=== PATIENT | male | born 1970 | race African-American/Black ===

== ENCOUNTER 2022-02-19 20:23 | Emergency (ER) | payer SELFPAY ==
[2022-02-19] MEDS ORDERED: Ondansetron PF 4 MG/2 ML Vial ONE (20:37)
[2022-02-19] MEDS ORDERED: hydrALAZINE 20 MG/ML VIAL ONE (20:38)
[2022-02-19 20:55] LABS: #Basophils 0.1 thou/uL (0.0-0.2); #Monocytes 0.4 thou/uL (0.11-0.59); #Neutrophils 6.9 thou/uL (1.40-6.50); %Basophils 1.1 % (0.0-1.0); %Eosinophils 0.4 % (0.0-10.0); %Lymphocytes 21.2 % (21.0-51.0); %Monocytes 4.6 % (0.0-10.0); %Neutrophils 72.7 % (42.0-75.0); Hemoglobin 16.6 g/dL (12.0-16.0); Mean Corpuscular HGB CONC 31.7 g/dL (32.0-36.0); Mean Corpuscular Hemoglobin 26.3 pg (27.0-31.0); Mean Corpuscular Volume 82.9 fl (78.0-98.0); Mean Platelet Volume 9.1 fL (7.4-10.4); Platelet Count 236 10x3/uL (130-400); RBC Distribution Width 13.5 % (11.5-14.5); Red Blood Cell (RBC) Count 6.31 mill/uL (4.20-5.40); White Blood Cell (WBC) Count 9.5 10x3/uL (4.8-10.8)
[2022-02-19] MEDS ORDERED: Meclizine HCl 25 MG TAB ONE (21:07)
[2022-02-19] MEDS ORDERED: Sodium Chloride 0.9% 1,000 ML ONE (21:19)
[2022-02-19] MEDS ORDERED: Labetalol HCl 100 MG/20 ML VIAL ONE (21:42)
[2022-02-19 22:37] LABS: ALT (SGPT) 21 U/L (8-55); AST (SGOT) 20 U/L (5-34); Albumin 4.4 g/dL (3.5-5.0); Alkaline Phosphatase 87 U/L (40-110); Anion Gap 20 mmol/L (10-20); BUN (Urea Nitrogen) 11 mg/dL (8.4-25.7); Bilirubin, Total 0.5 mg/dL (0.2-1.2); Calc. Creatinine Clearance 0 mL/min (70-130); Calcium 9.7 mg/dL (7.8-10.44); Carbon Dioxide 23 mmol/L (22-29); Chloride 105 mmol/L (98-107); Estimated GFR 70; Globulin 3.3 g/dL (2.4-3.5); Glucose 94 mg/dL (70-105); Lipase 8 U/L (8-78); Potassium 3.9 mmol/L (3.5-5.1); Protein, Total 7.7 g/dL (6.0-8.3); Sodium 144 mmol/L (136-145)
[2022-02-19] MEDS ORDERED: Diazepam 5 MG TAB ONE (22:40)
[2022-02-19] MEDS ORDERED: niCARdipine 25 MG/10 ML VIAL ONE ×2 (22:44→22:49)
[2022-02-19] MEDS ORDERED: Sodium Chloride 0.9% 250 ML 250 ML ONE (22:50)
== END 2022-02-20 00:30 | disposition short-term general hospital (02) ==
LOC: MADERS 20:23 → EDSEX 20:23 → MADERS 02-20 00:30
DX: I10 Essential (primary) hypertension (principal); R42 Dizziness and giddiness
CPT/HCPCS: 70450; 80053; 83690; 84484; 85025; 93005; 96365; 96366; 96375; J0360; J2405; J7050